=== PATIENT | female | born 1955 | race Caucasian/White ===

== ENCOUNTER 2020-07-09 15:12 | Emergency (ER) | payer MEDICARE ==
[2020-07-09 15:59] LABS: RED BLOOD COUNT 2.37 M/UL (4.00-5.10); WHITE BLOOD COUNT 5.5 K/UL (4.5-11.0)
[2020-07-09 16:01] LABS: HEMOGLOBIN 6.8 gm/dl (12.3-15.3)
[2020-07-09 23:44] LABS: HEMOGLOBIN 8.5 gm/dl (12.3-15.3); WHITE BLOOD COUNT 5.6 K/UL (4.5-11.0)
[2020-07-09 23:49] LABS: RED BLOOD COUNT 2.9 M/UL (4.00-5.10)
== END 2020-07-10 00:10 | disposition home or self-care (01) ==
LOC: ER1 15:12
PROVIDERS: Nurse Practitioner; Physician Assistant Medical
DX: D64.9 Anemia, unspecified (principal); E78.5 Hyperlipidemia, unspecified; J44.9 Chronic obstructive pulmonary disease, unspecified; I10 Essential (primary) hypertension; J45.909 Unspecified asthma, uncomplicated; F17.200 Nicotine dependence, unspecified, uncomplicated; Z79.82 Long term (current) use of aspirin; Z79.01 Long term (current) use of anticoagulants; Z88.0 Allergy status to penicillin; Z91.040 Latex allergy status; Z88.5 Allergy status to narcotic agent
CPT/HCPCS: 36430; 80053; 85025; 85610; 86850; 86900; 86901; 86920; 99284; J7050; P9016